=== PATIENT | female | born 1995 | race Caucasian/White ===

== ENCOUNTER 2016-10-17 19:31 | Emergency (ER) | payer SELFPAY ==
[~2016-10-17] VITALS: Ht 170.2 cm; Wt 124.3 kg
[2016-10-17 19:42] VITALS: BP 149/103
--- NOTE | 2016-10-17 22:36 | NUR ---
Patient to OF.
--- NOTE | 2016-10-17 22:46 | NUR ---
PATIENT LEFT WITHOUT BEING SEEN BY DR. BASSETT. NO FURTHER CARE PROVIDED FOR PATIENT.
== END 2016-10-17 22:46 | disposition left against medical advice (07) ==
LOC: MED 19:31
DX: R50.9 Fever, unspecified (principal); R10.9 Unspecified abdominal pain; J02.9 Acute pharyngitis, unspecified; Z53.21 Procedure and treatment not carried out due to patient leaving prior to being seen by health care provider